=== PATIENT | male | born 2000 | race Caucasian/White ===

== ENCOUNTER 2024-05-19 20:25 | Emergency (ER) | payer OTHER, BC ==
[~2024-05-19] VITALS: Ht 167.6 cm; Wt 69.0 kg
[2024-05-19 20:47] VITALS: TEMP 36.8; O2SAT 99
[2024-05-19 22:07] LABS: CHLORIDE 103 mEq/L (98-107); POTASSIUM 3.9 mEq/L (3.5-5.1); SODIUM 139 mEq/L (136-145)
[2024-05-19 22:08] LABS: CALCIUM 9.9 mg/dL (8.7-10.4); CARBON DIOXIDE 29 mEq/L (21-32)
[2024-05-19 22:13] LABS: CREATININE 0.8 mg/dL (0.6-1.3); GLUCOSE 100 mg/dL (70-105); UREA NITROGEN BLOOD 16 mg/dL (9-23)
[2024-05-19 23:24] VITALS: BP 127/48; PULSE 68; RESP 16; O2SAT 100
== END 2024-05-19 23:25 | disposition home or self-care (01) ==
LOC: ER 20:25
DX: T21.41XA Corrosion of unspecified degree of chest wall, initial encounter (principal); Z79.899 Other long term (current) drug therapy; X08.8XXA Exposure to other specified smoke, fire and flames, initial encounter; Y93.89 Activity, other specified; Y92.89 Other specified places as the place of occurrence of the external cause; Y99.8 Other external cause status
CPT/HCPCS: 36415; 80048; 83735; 93005; 99284